=== PATIENT | male | born 1985 | race Caucasian/White ===

== ENCOUNTER 2021-01-14 17:04 | Emergency (ER) | payer OTHER ==
[~2021-01-14] VITALS: Ht 180.3 cm; Wt 85.3 kg
--- NOTE | 2021-01-16 11:38 | EKG ---
[facility] [address] [facility] [place], [place] [address] Signed Normal sinus rhythm with sinus arrhythmia Normal ECG No previous ECGs available Confirmed by YOANA SIMENTAL DO ([id number]) on 01/16/2021 11:38:01 AM Electronically Signed By: YOANA SIMENTAL DO 01/16/21 1138 PATIENT NAME: VEDA FLORES Electrocardiogram DATE OF : 89 PHYSICIAN: YOANA SIMENTAL DO REPORT #: [id number] REPORT IS CONFIDENTIAL AND NOT TO BE RELEASED WITHOUT AUTHORIZATION
[2021-02-04] MEDS ORDERED: VENTOLIN HFA18 GM INH (16:34)
== END 2021-01-14 22:57 ==
LOC: ED 17:04
DX: R07.9 Chest pain, unspecified (principal); R77.8 Other specified abnormalities of plasma proteins; I25.2 Old myocardial infarction; Z87.891 Personal history of nicotine dependence; Z88.6 Allergy status to analgesic agent; Z88.8 Allergy status to other drugs, medicaments and biological substances; Z20.822 Contact with and (suspected) exposure to COVID-19
CPT/HCPCS: 71045; 80053; 82550; 82553; 83690; 83735; 83874; 84484; 85025; 85379; 93005; 93010; 99285-25; U0003

== ENCOUNTER 2021-01-16 22:51 | Emergency (ER) | payer OTHER ==
[~2021-01-16] VITALS: Ht 182.9 cm; Wt 85.3 kg
--- OUTSIDE RECORDS SUMMARY | 2021-01-16 22:54 | XMS ---
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 Teodoro has no Care Guidelines for this patient. Brandy VISIT COUNT (12 MO.) 2 [facility] TOTAL 2 NOTE: Visits indicate total known visits. ED/C VISIT TRACKING (12 MO.) 01/16/2021 22:53 [facility] [place] TYPE: Emergency COMPLAINT: - CHEST PRESSURE 01/14/2021 17:05 [facility] [place] TYPE: Emergency COMPLAINT: - CHEST PAIN INPATIENT VISIT TRACKING (12 MO.) No inpatient visits to display in this time frame [id number]
[2021-01-16] MEDS ORDERED: CLOPIDOGREL75 MG PO (23:14)
[2021-01-16] MEDS ORDERED: COLCHICINE0.6 M1 PO (23:14)
--- NOTE | 2021-01-17 12:04 | EKG ---
[facility] [address] [facility] [place], [place] [address] Signed Sinus bradycardia Otherwise normal ECG When compared with ECG of 14-JAN-2021 17:09, QT has shortened Confirmed by YOANA SIMENTAL DO ([id number]) on 01/17/2021 12:04:43 PM Electronically Signed By: YOANA SIMENTAL DO 01/17/21 1204 PATIENT NAME: VEDA FLORES Electrocardiogram DATE OF : [birth year] PHYSICIAN: YOANA SIMENTAL DO REPORT #: [id number] REPORT IS CONFIDENTIAL AND NOT TO BE RELEASED WITHOUT AUTHORIZATION
[2021-02-04] MEDS ORDERED: VENTOLIN HFA18 GM INH (16:34)
== END 2021-01-17 00:32 | disposition home or self-care (01) ==
LOC: ED 22:51
DX: I31.9 Disease of pericardium, unspecified (principal); I21.4 Non-ST elevation (NSTEMI) myocardial infarction; I25.2 Old myocardial infarction; K21.9 Gastro-esophageal reflux disease without esophagitis; Z87.891 Personal history of nicotine dependence; Z88.6 Allergy status to analgesic agent; Z88.8 Allergy status to other drugs, medicaments and biological substances; Z79.899 Other long term (current) drug therapy
CPT/HCPCS: 71045; 80053; 83735; 84484; 85025; 93005; 93010; 99285-25

== ENCOUNTER 2021-02-04 16:20 | Emergency (ER) | payer OTHER ==
[~2021-02-04] VITALS: Ht 182.9 cm; Wt 85.3 kg
[~2021-02-04 16:20] MED LIST: CLOPIDOGREL75 MG PO; COLCHICINE0.6 M1 PO
--- OUTSIDE RECORDS SUMMARY | 2021-02-04 16:24 | XMS ---
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 E.Toan VISIT COUNT (12 MO.) 3 [facility] [address] [facility] TOTAL 3 NOTE: Visits indicate total known visits. ED/UCC VISIT TRACKING (12 MO.) 02/04/2021 16:22 [facility] [place] TYPE: Emergency COMPLAINT: - CHEST PAIN 01/16/2021 22:53 [facility] [place] TYPE: Emergency COMPLAINT: - CHEST PRESSURE DIAGNOSES: - Other chest pain - Non-ST elevation (NSTEMI) myocardial infarction - Disease of pericardium, unspecified - Allergy status to analgesic agent - Gastro-esophageal reflux disease without esophagitis - Allergy status to other drugs, medicaments and biological substances - Old myocardial infarction - Other intermediate (current) drug therapy - Personal history of nicotine dependence 01/14/2021 17:05 [facility] [place] TYPE: Emergency COMPLAINT: - CHEST PAIN DIAGNOSES: - Old myocardial infarction - Personal history of nicotine dependence - Chest pain, unspecified - Other specified abnormalities of plasma proteins - Allergy status to other drugs, medicaments and biological substances - Allergy status to analgesic agent INPATIENT VISIT TRACKING (12 MO.) No inpatient visits to display in this time frame [id number]
[2021-02-04] MEDS ORDERED: VENTOLIN HFA18 GM (16:34)
[2021-02-04] MEDS ORDERED: VENTOLIN HFA18 GM INH ×2 (16:34)
--- NOTE | 2021-02-04 22:02 | EKG ---
[facility] [address] [place], [place] [address] Signed Sinus bradycardia with premature atrial complexes Otherwise normal ECG When compared with ECG of 16-JAN-2021 22:59, premature atrial complexes are now present Confirmed by JONH BARRERA MD ([id number]) on 02/04/2021 10:02:43 PM Electronically Signed By: JONH BARREAR MD 02/04/212201 PATIENT NAME: VEDA FLORES Electrocardiogram DATE OF : [birth year] PHYSICIAN: JONH BARRERA MD REPORT #: [id number] REPORT IS CONFIDENTIAL AND NOT TO BE RELEASED WITHOUT AUTHORIZATION
== END 2021-02-04 22:03 | disposition home or self-care (01) ==
LOC: ED 16:20
DX: R07.89 Other chest pain (principal); I25.2 Old myocardial infarction; K21.9 Gastro-esophageal reflux disease without esophagitis; Z87.891 Personal history of nicotine dependence; Z88.6 Allergy status to analgesic agent; Z88.8 Allergy status to other drugs, medicaments and biological substances; Z79.899 Other long term (current) drug therapy
CPT/HCPCS: 71045; 80053; 83735; 84484; 85025; 85379; 93005; 93010; 99285-25

== ENCOUNTER 2021-02-13 15:46 | Emergency (ER) | payer OTHER ==
[~2021-02-13] VITALS: Ht 182.9 cm; Wt 85.3 kg
[~2021-02-13 15:46] MED LIST changes: +VENTOLIN HFA18 GM; +VENTOLIN HFA18 GM INH
--- OUTSIDE RECORDS SUMMARY | 2021-02-13 15:48 | XMS ---
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 EJames VISIT COUNT (12 MO.) [address] [facility] [address] [facility] TOTAL 4 NOTE: Visits indicate total known visits. 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 - Gastro-esophageal reflux disease without esophagitis - Allergy status to other drugs, medicaments and biological substances - Personal history of nicotine dependence 01/16/2021 22:53 [facility] [place] TYPE: Emergency COMPLAINT: - CHEST PRESSURE DIAGNOSES: - Other chest pain - Non-ST elevation (NSTEMI) myocardial infarction - Disease of pericardium, unspecified - Allergy status to analgesic agent - Gastro-esophageal reflux disease without esophagitis - Allergy status to other drugs, medicaments and biological substances - Old myocardial infarction - Other group home (current) drug therapy - Personal history of [...] visits to display in this time frame [id number]
[2021-02-13] MEDS ORDERED: PREDNISONE20 MG PO (17:54)
--- NOTE | 2021-02-13 20:36 | EKG ---
[facility] [address] [facility] [place], [place] [address] Signed Normal sinus rhythm with sinus arrhythmia Normal ECG When compared with ECG of 04-FEB-2021 16:23, premature atrial complexes are no longer present Confirmed by YOANA SIMENTAL DO ([id number]) on 02/13/2021 8:36:33 PM Electronically Signed By: YOANA SIMENTAL DO 02/13/212035 PATIENT NAME: VEDA FLORES Electrocardiogram DATE OF : [birth year] PHYSICIAN: YOANA SIMENTAL DO REPORT #: [id number] REPORT IS CONFIDENTIAL AND NOT TO BE RELEASED WITHOUT AUTHORIZATION
== END 2021-02-13 18:02 | disposition home or self-care (01) ==
LOC: ED 15:46
DX: I31.9 Disease of pericardium, unspecified (principal); K21.9 Gastro-esophageal reflux disease without esophagitis; I25.2 Old myocardial infarction; F17.200 Nicotine dependence, unspecified, uncomplicated; Z88.6 Allergy status to analgesic agent; Z88.8 Allergy status to other drugs, medicaments and biological substances; Z79.899 Other long term (current) drug therapy
CPT/HCPCS: 71045; 80053; 84484; 85025; 85651; 93005; 93010; 99285-25; J7512

== ENCOUNTER 2021-02-20 10:34 | Emergency (ER) | payer OTHER ==
[~2021-02-20] VITALS: Ht 182.9 cm; Wt 85.3 kg
[~2021-02-20 10:34] MED LIST changes: +PREDNISONE20 MG PO
--- OUTSIDE RECORDS SUMMARY | 2021-02-20 10:44 | XMS ---
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 EJames VISIT COUNT (12 MO.) [address] [facility] [address] [facility] TOTAL 5 NOTE: Visits indicate total known visits. 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
--- NOTE | 2021-02-20 11:20 | EKG ---
[facility] [address] [facility] [place], [place] [address] Signed Normal sinus rhythm Normal ECG Confirmed by JONH BARRERA MD ([id number]) on 02/20/2021 11:20:27 AM Electronically Signed By: JONH BARRERA MD 02/20/21 1120 PATIENT NAME: VEDA FLORES Electrocardiogram DATE OF : [birth year] PHYSICIAN: JONH BARRERA MD REPORT #: [id number] REPORT IS CONFIDENTIAL AND NOT TO BE RELEASED WITHOUT AUTHORIZATION
== END 2021-02-20 14:02 | disposition home or self-care (01) ==
LOC: ED 10:34
DX: R07.2 Precordial pain (principal); I25.2 Old myocardial infarction; K21.9 Gastro-esophageal reflux disease without esophagitis; F17.200 Nicotine dependence, unspecified, uncomplicated; Z88.6 Allergy status to analgesic agent; Z88.8 Allergy status to other drugs, medicaments and biological substances; Z79.899 Other long term (current) drug therapy
CPT/HCPCS: 71045; 80053; 83735; 84484; 85025; 93005; 93010; 99285-25